=== PATIENT | female | born 1950 | race Caucasian/White ===

== ENCOUNTER 2017-06-26 20:31 | Emergency (ER) | payer MEDICARE ==
[~2017-06-26] VITALS: Ht 170.2 cm; Wt 76.2 kg
--- NOTE | 2017-06-26 20:50 | NUR ---
BIBSELF C/O RIGHT FOREARM AND R ELBOW PAIN S/P TRIP AND FALL X 1500, NAD NOTED, VSS, RESP EVEN AND UNLABORED, PT PUT ON MONITOR, WAITING FOR MD TREVINO
[2017-06-26] MEDS ORDERED: HYDROCODONE/APAP 5/325MG 1 EACH TABLET PO ONE (21:30)
[2017-06-26] MEDS ORDERED: HYDROCODONE/APAP 5/325MG 1 EACH TABLET ONE (21:34)
[2017-06-26 21:45] VITALS: BP 102/66
--- NOTE | 2017-06-26 21:47 | NUR ---
Patient discharged to home in stable condition. Written and verbal after care instructions given. Patient verbalizes understanding of instruction. Prescription given.
== END 2017-06-26 21:47 | disposition home or self-care (01) ==
LOC: ER 20:36
DX: S42.401A Unspecified fracture of lower end of right humerus, initial encounter for closed fracture (principal); I89.0 Lymphedema, not elsewhere classified; K21.9 Gastro-esophageal reflux disease without esophagitis; Z85.3 Personal history of malignant neoplasm of breast; Z90.89 Acquired absence of other organs; W01.0XXA Fall on same level from slipping, tripping and stumbling without subsequent striking against object, initial encounter; Y93.89 Activity, other specified; Y92.89 Other specified places as the place of occurrence of the external cause; Y99.8 Other external cause status
CPT/HCPCS: 73080; 73090; 99284; A4606; Z7610